=== PATIENT | male | born 1955 | race Two or more races ===

== ENCOUNTER 2024-12-16 12:00 | Inpatient (IN) | payer OTHER ==
[~2024-12-16] VITALS: Ht 172.7 cm; Wt 100.7 kg
[2024-12-16] MEDS ORDERED: ZESTRIL10 M1 (13:40)
[2024-12-16] MEDS ORDERED: METFORMIN500 MG/5 M (13:41)
[2024-12-16 13:53] VITALS: BP 111/73
[2024-12-24] MEDS ORDERED: METRONIDAZOLE/SODIUM CHLORIDE 500 MG/100 ML PIGGYBACK IV ONE (11:43)
[2024-12-24 11:44] LABS: RH POSITIVE
[2024-12-24] MEDS ORDERED: levoFLOXacin IN DEXTROSE 5 % 5 MG/ML PIGGYBAG IV ONE (11:44)
[2024-12-24] MEDS ORDERED: BUPIVACAINE HCL/MPF 0.5% 30ML VIAL ONE (12:44)
[2024-12-24] MEDS ORDERED: LIDOCAINE HCL 1%/EPINEPHRINE 20ML VIAL IJ ONE (12:44)
[2024-12-24] MEDS ORDERED: OxyCODONE HCL 5 MG TABLET (ROXICODONE) PO PRN (14:00)
[2024-12-24] MEDS ORDERED: RINGERS SOLUTION,LACTATED 1,000 ML IV SCH (14:00)
[2024-12-24] MEDS ORDERED: ONDANSETRON HCL 2 MG/ML VIAL IV PRN (14:00)
[2024-12-24] MEDS ORDERED: ACETAMINOPHEN 500 MG GEL..CAP PO SCH (14:00)
[2024-12-24] MEDS ORDERED: DEXTROSE 50 % IN WATER 0.5 G/ML DISP.SYRIN IV PRN (14:00)
[2024-12-24] MEDS ORDERED: MORPHINE SULFATE 4 MG/ML CARTRIDGE IV PRN (14:00)
[2024-12-24] MEDS ORDERED: POLYETHYLENE GLYCOL 3350 17 GM BLIST.PACK PO SCH (17:00)
[2024-12-24] MEDS ORDERED: GABAPENTIN 300 MG CAPSULE PO SCH (17:00)
[2024-12-24] MEDS ORDERED: MORPHINE SULFATE 4 MG/ML VIAL IV ONE ×2 (17:10→17:40)
[2024-12-24] MEDS ORDERED: FAMOTIDINE/PF 20 MG/2 ML VIAL ONE (20:02)
[2024-12-24 20:25] VITALS: BP 160/90; O2SAT 98
[2024-12-24 20:55] LABS: BASO % 0.2 % (0.1-1.2); EOS # 0.01 (0.04-0.54); EOS % 0.1 % (0.7-7.0); HEMATOCRIT 45.3 % (40.1-51.0); HEMOGLOBIN 14.8 g/dL (13.7-17.5); LYMPH # 0.51 (1.18-3.74); MEAN CORPUSCULAR HEMOGLOBIN 27.9 pg (25.6-32.2); MONO # 1.09 (0.24-0.82); MONO % 8.5 % (4.7-12.5); NEUT # 11.15 (1.56-6.13); NEUT % 86.9 % (34.0-71.1); PLATELET COUNT 203 K/uL (163-369); RED CELL DISTRIBUTION WIDTH 12.9 % (11.6-14.4)
[2024-12-24] MEDS ORDERED: FAMOTIDINE/PF 20 MG/2 ML VIAL IV PUSH SCH (21:00)
[2024-12-24 21:20] LABS: ALBUMIN 3.1 gm/dL (3.4-5.0); CALCIUM 8.4 mg/dL (8.5-10.1); CREATININE SERUM 1.22 mg/dL (0.70-1.30); GFR 59.25; PHOSPHOROUS 3.7 mg/dL (2.5-4.9); POTASSIUM 3.99 mEq/L (3.5-5.1)
[2024-12-24 21:21] LABS: MAGNESIUM 1.4 mg/dL (1.8-2.4)
[2024-12-25 01:04] VITALS: BP 143/81; O2SAT 99
[2024-12-25 07:56] LABS: BASO % 0.1 % (0.1-1.2); HEMATOCRIT 45.7 % (40.1-51.0); LYMPH # 0.57 (1.18-3.74); LYMPH % 3.8 % (19.3-53.1); MEAN CORPUSCULAR HEMOGLOBIN 27.4 pg (25.6-32.2); MONO # 1.21 (0.24-0.82); MONO % 8.1 % (4.7-12.5); NEUT # 13.13 (1.56-6.13); NEUT % 87.5 % (34.0-71.1); PLATELET COUNT 213 K/uL (163-369); RED BLOOD COUNT 5.47 M/uL (4.63-6.08); RED CELL DISTRIBUTION WIDTH 12.7 % (11.6-14.4)
[2024-12-25 08:04] LABS: CALCIUM 8.7 mg/dL (8.5-10.1); CREATININE SERUM 1.27 mg/dL (0.70-1.30); GFR 56.56; PHOSPHOROUS 3.4 mg/dL (2.5-4.9); POTASSIUM 4.35 mEq/L (3.5-5.1)
[2024-12-25 08:08] LABS: MAGNESIUM 1.4 mg/dL (1.8-2.4)
[2024-12-25 09:38] VITALS: BP 158/95; O2SAT 95
[2024-12-25] MEDS ORDERED: LISINOPRIL 10 MG TABLET PO SCH (11:11)
[2024-12-25] MEDS ORDERED: DEXTROSE 50 % IN WATER 0.5 G/ML VIAL IV PRN (11:15)
[2024-12-25] MEDS ORDERED: INSULIN LISPRO 1,000 UNIT/10 ML UNITS SUBCUTANEO PRN (11:15)
[2024-12-25] MEDS ORDERED: MAGNESIUM SULFATE IN WATER 4 GM/100 ML PIGGYBACK IV NR (12:00)
[2024-12-25 16:10] VITALS: BP 160/108; O2SAT 97
[2024-12-25] MEDS ORDERED: ENOXAPARIN SODIUM 40 MG/0.4 ML SYRINGE SUBCUTANEO SCH (17:00)
[2024-12-25] MEDS ORDERED: ENALAPRILAT DIHYDRATE 1.25 MG/ML VIAL IV PRN (17:30)
[2024-12-25 18:55] VITALS: BP 170/110
[2024-12-25] MEDS ORDERED: hydrALAZINE HCL 10 MG TABLET PO STA (19:16)
[2024-12-26 00:54] VITALS: BP 131/80; O2SAT 97
[2024-12-26 08:20] VITALS: BP 144/87; O2SAT 96
[2024-12-26] MEDS ORDERED: ENOXAPARIN SODIUM 40 MG/0.4 ML SYRINGE SUBCUTANEO SCH (09:00)
[2024-12-26 16:55] VITALS: BP 131/89; O2SAT 97
[2024-12-27 00:46] VITALS: BP 115/59; O2SAT 99
[2024-12-27 07:33] LABS: BASO % 0.3 % (0.1-1.2); EOS # 0.22 (0.04-0.54); EOS % 1.7 % (0.7-7.0); HEMATOCRIT 42.5 % (40.1-51.0); HEMOGLOBIN 13.9 g/dL (13.7-17.5); LYMPH # 1.57 (1.18-3.74); LYMPH % 12.4 % (19.3-53.1); MEAN CORPUSCULAR HEMOGLOBIN 28.4 pg (25.6-32.2); MONO # 1.27 (0.24-0.82); NEUT # 9.46 (1.56-6.13); PLATELET COUNT 207 K/uL (163-369); RED BLOOD COUNT 4.89 M/uL (4.63-6.08); RED CELL DISTRIBUTION WIDTH 13.2 % (11.6-14.4)
[2024-12-27 08:22] LABS: CALCIUM 8.4 mg/dL (8.5-10.1); CREATININE SERUM 1.23 mg/dL (0.70-1.30); GFR 58.69; POTASSIUM 3.98 mEq/L (3.5-5.1)
[2024-12-27] MEDS ORDERED: INTESTINEX680 M1 PO (08:23)
[2024-12-27] MEDS ORDERED: HYOSCYAMINE0.125 M1 SL (08:23)
[2024-12-27 09:10] VITALS: BP 126/89; O2SAT 96
== END 2024-12-27 12:25 | disposition home or self-care (01) | DRG 330 ==
LOC: O/R 12-24 08:58 → SURH 12-24 10:30 → SURG 12-24 17:55 → SURH 12-24 20:50
PROVIDERS: Surgery; ADMIT Surgery; ATTEND Surgery
PROC: 0DBP4ZZ Excision of Rectum, Percutaneous Endoscopic Approach (ICD-10-PCS; 2024-12-24)
PROC: 0DJD8ZZ Inspection of Lower Intestinal Tract, Via Natural or Artificial Opening Endoscopic (ICD-10-PCS; 2024-12-24)
PROC: 07BC4ZZ Excision of Pelvis Lymphatic, Percutaneous Endoscopic Approach (ICD-10-PCS; 2024-12-24)
PROC: 0DTN4ZZ Resection of Sigmoid Colon, Percutaneous Endoscopic Approach (ICD-10-PCS; principal; 2024-12-24 10:30)
DX: C18.7 Malignant neoplasm of sigmoid colon (principal); K92.1 Melena; R59.0 Localized enlarged lymph nodes

== ENCOUNTER 2025-01-25 08:27 | Day surgery (SDC) | payer OTHER ==
[~2025-01-25 08:27] MED LIST: HYOSCYAMINE0.125 M1 SL; INTESTINEX680 M1 PO; METFORMIN500 MG/5 M; ZESTRIL10 M1
[2025-01-25] MEDS ORDERED: TRAM1TAB98 PO (13:38)
[2025-01-25] MEDS ORDERED: METRONIDAZOLE/SODIUM CHLORIDE 500 MG/100 ML PIGGYBACK IV ONE (14:15)
[2025-01-25] MEDS ORDERED: levoFLOXacin IN DEXTROSE 5 % 5 MG/ML PIGGYBAG IV ONE (14:15)
[2025-01-25] MEDS ORDERED: HEPARIN SODIUM,PORCINE 0.5 UNITS/ML SYRINGE IV ONE (14:15)
[2025-01-25] MEDS ORDERED: BUPIVACAINE HCL 30 ML VIAL IV ONE (14:15)
[2025-01-25] MEDS ORDERED: LIDOCAINE HCL 1%/EPINEPHRINE 20ML VIAL IJ ONE (14:15)
== END 2025-01-25 16:40 | disposition home or self-care (01) ==
LOC: CIR.AMB 08:27
PROVIDERS: ATTEND Surgery
DX: C18.7 Malignant neoplasm of sigmoid colon (principal); Z88.0 Allergy status to penicillin
CPT/HCPCS: 36561; C1751